=== PATIENT | male | born 1990 | race Two or more races ===

== ENCOUNTER 2020-04-02 09:37 | Outpatient (REF) | payer OTHER, SELFPAY | END 2020-04-02 09:38 | disposition home or self-care (01) | LOC: HO.LAB 09:37 | PROVIDERS: Visit Provider Internal Medicine | DX: Z20.828 Contact with and (suspected) exposure to other viral communicable diseases (principal) | CPT/HCPCS: C9803; U0003 ==

== ENCOUNTER 2020-12-01 10:55 | Outpatient (REF) | payer OTHER, SELFPAY ==
[2020-12-01 11:26] LABS: COVID-19 Test Negative (Negative)
== END 2020-12-01 10:56 | disposition home or self-care (01) ==
LOC: HO.LAB 10:55
PROVIDERS: PCP Nurse Practitioner Family; Visit Provider Internal Medicine
DX: Z20.822 Contact with and (suspected) exposure to COVID-19 (principal)
CPT/HCPCS: 36415; 87635; C9803

== ENCOUNTER → 2022-10-07 14:59 | Outpatient (BNVA) | payer OTHER, SELFPAY | PROVIDERS: PCP Physician Assistant Medical; Visit Provider Nurse Practitioner Family ==

== ENCOUNTER 2023-01-09 18:45 | Emergency (ER) | payer OTHER, SELFPAY ==
--- NOTE | 2023-01-09 18:52 | ECG_ITS ---
Test Reason : CHEST PAIN Blood Pressure : / mmHG Vent. Rate : 076 BPM Atrial Rate : 076 BPM P-R Int : 160 ms QRS Dur : 110 ms QT Int : 368 ms P-R-T Axes : 032 008 042 degrees QTc Int : 414 ms Normal sinus rhythm Normal ECG When compared with ECG of 20-NOV-2014 14:23, No significant change was found Referred By: Generic ED Physician Electronically Signed By:ANJALI CORONEL
[2023-01-09 19:30] VITALS: BP 154/101; PULSE 65; RESP 18; TEMP 36.6; O2SAT 97; BMI 45.5
[2023-01-09 19:53] LABS: MANUAL DIFF FLAG NO
[2023-01-09 19:57] LABS: Basophils Absolute Auto 0.1 X10*3/uL (0.0-0.2); Basophils Percent Auto 0.6 % (0-2); Eosinophils Absolute Auto 0.4 X10*3/uL (0.0-0.4); Eosinophils Percent Auto 3.8 % (0-4); Hematocrit 42.1 % (42.0-52.0); Hemoglobin 13.2 g/dl (14.0-18.0); Imm Gran Abs Auto 0.03 X10*3/uL (0.00-0.03); Imm Gran Pct Auto 0.3 % (0.0-0.4); Lymphocytes Absolute Auto 2.6 X10*3/uL (1.2-4.9); Lymphocytes Percent Auto 26.1 % (20-40); Mean Corpuscular HGB Conc 31.4 g/dl (31.0-36.0); Mean Corpuscular Hemoglobin 25.4 pg (27.0-33.0); Mean Platelet Volume 10.6 fL (9.4-12.4); Monocytes Absolute Auto 0.8 X10*3/uL (0.1-1.2); Monocytes Percent Auto 8.4 % (2-11); Neutrophils Percent Auto 60.8 % (45-73); Platelet Count 285 X10*3/uL (160-400); Red Cell Distribution Width 13.8 % (11.0-16.0); White Blood Count 9.8 X10*3/uL (4.8-10.8)
[2023-01-09 20:08] LABS: Anion Gap 13 (12-20); Blood Urea Nitrogen 10 mg/dL (9-16); Calcium 8.8 mg/dL (8.4-10.2); Carbon Dioxide 24 mmol/L (22-29); Chloride 108 mmol/L (96-108); Estimated Glomerular Filt Rate > 60; Glucose Random 102 mg/dL (60-115); Potassium 3.7 mmol/L (3.3-5.1); Sodium 141 mmol/L (135-145)
[2023-01-09 20:09] VITALS: BP 121/78; PULSE 64; RESP 16; TEMP 36.8; O2SAT 97
[2023-01-09 20:17] LABS: Troponin-I High Sensitivity < 2.7 ng/L (<3.5-35.0)
--- NOTE | 2023-01-09 20:56 | ED_ITS ---
HPI - Chest Pain General Chief Complaint: Chest Pain Stated Complaint: chest pain, numbness in hand Time Seen by Provider: 01/09/23 20:55 Source: patient Mode of arrival: ambulatory Limitations: no limitations History of Present Illness HPI narrative: 32-year-old man who presents emergency department for evaluation of chest pain. The patient states that he was sitting, stood up and then developed a pain in the center of his chest. He states that the pain is a constant, pressure-like pain. He had associated headache felt very tired and fatigued. He denied nausea, vomiting, dizziness, shortness of breath or diaphoresis. He took ibuprofen 400 mg orally at MN lie down and took a nap approximately 2-4 hours. When his tried to wake him up he was disoriented. He then continued to have chest pain and was brought to the emergency department for evaluation. Patient states this is 1st episode of this type of pain. Review of systems was negative for fever, chills, sore throat, cough, nausea, vomiting, diarrhea, shortness of breath or dyspnea on exertion Patient has not noticed any swelling or pain in his lower extremities, he has had no recent surgeries and has not gone on any long trips. Related Data Home Medications Medication Instructions Recorded Confirmed albuterol sulfate 90 mcg/actuation 2 puff inhalation Q4-6H PRN 10/07/22 aerosol inhaler wheezing amlodipine 10 mg tablet 10 mg PO QAM 10/07/22 fluticasone furoate 200 1 ea inhalation DAILY 10/07/22 mcg-vilanterol 25 mcg/dose inhalation powder (Breo Ellipta) montelukast 10 mg tablet 10 mg PO BEDTIME 10/07/22 olmesartan 40 1 tab PO DAILY 10/07/22 mg-hydrochlorothiazide 12.5 mg tablet omeprazole 20 mg capsule,delayed 20 mg PO QAM 10/07/22 release Previous Rx's Medication Instructions Recorded magnesium oxide 400 mg PO BEDTIME 30 days #30 caps 10/07/22 Allergies Allergy/AdvReac Type Severity Reaction Status Date / Time lisinopril [LISINOPRIL] Allergy Unknown ITCHY Unverified 10/07/22 15:11 THROAT Milk Containing Products Allergy Unknown Itching Verified 10/07/22 15:11 (Dairy) peanut Allergy Unknown Unknown Verified 10/07/22 15:11 Review of Systems 2 Review of Systems: Yes all other systems are reviewed and are negative [facility] Past Medical History [facility] Narrative: Past medical history: Hypertension, obesity, asthma. Surgical history: None. Social history: Patient denies tobacco use. He occasionally drinks alcohol, his last drink was 1 week prior. He smokes marijuana his last use of marijuana was 1 week prior. Family history. Patient's mother had a myocardial infarction of 60. Patient's father had a myocardial infarction at 60. Patient has a sister with hypertension, but no early NM Family History Family History (Updated 10/07/22 @ 15:14 by Jessi Moncada CMA) Father Hypertension Diabetes Mother Diabetes Hypertension Social History Social History (Updated 10/07/22 @ 15:15 by Jessi Moncada CMA) Alcohol intake: current Alcohol intake frequency: holidays/special occasions only Patient Tobacco Use Status: Never used Tobacco Smoked in Last 30 Days: No Use of substances other than those prescribed or required for medical reasons: Yes Substance Use Type: Marijuana Advance Directives: No Physical Exam 2 Vital Signs: Vital Signs: Last Vital Signs Temp 98.2 F 01/09/23 20:09 Pulse 64 01/09/23 20:09 Resp 16 01/09/23 20:09 BP 121/78 01/09/23 20:09 Pulse Ox 97 01/09/23 20:09 O2 Del Method Room Air 01/09/23 20:09 BMI result Body Mass Index 45.5 Vital signs were normal Exam: General: Awake, alert in no distress, elevated BMI 45.5 Head: Normocephalic, atraumatic EENT: PERRL, Lids normal, sclera normal, conjunctiva normal, nose normal , ears normal, throat without erythema or exudates Neck: Supple, no adenopathy, trachea midline and tender sternum and bilateral anterior chest over costochondral joints Lung: breath sounds symmetric, no wheezing, rales or rhonchi Chest: symmetric movement, nontender Heart: regular rate and rhythm, normal S1, S2 no murmurs or rubs Abdomen: soft, non-tender, nondistended, normal bowel sounds Back: no vertebral tenderness, no CVAT Extremities: no deformities, moves all extremities symmetrically Skin: no rashes, no lesion, normal color and warmth Neuro: Awake, alert, oriented, normal speech, cranial nerves intact, moves all extremities symmetrically Psych: Pleasant, cooperative Medications Administered Discontinued Medications Generic Name Dose Route Start Last Admin Trade Name Karen PRN Reason Stop Dose Admin Ketorolac Tromethamine 60 mg 01/09/23 21:15 01/09/23 22:34 Ketorolac Tromethamine 60 Mg/2 Ml Vial IM 01/09/23 21:16 60 mg ONCE ONE Administration Medical Decision Making Medical Decision Making [facility] Narrative: 32-year-old male with a history of hypertension asthma who presents emergency department for evaluation of constant chest pain since noon, pain started when he stood up, pain was a pressure-like pain which was associated with a headache and fatigue. Following evaluation was ordered: CBC, CMP, troponin, EKG 2240: Patient's laboratory evaluation was unremarkable including a high sensitive troponin I which was below detectable limits. Despite 6-8 hours of constant chest pain, there was no detectable troponin suggesting that the patient's pain is not related to myocardial injury/myocardial infarction. Patient was treated with Toradol 60 mg IM with some improvement of his pain. Patient was advised to take ibuprofen and Tylenol for pain. He was given a work note. He was given printed and verbal instructions and discharged home. Differential Diagnosis Differential Diagnoses: The differential diagnosis associated with the presentation includes Differential diagnosis includes was not limited to myocardial infarction, myocardial injury, musculoskeletal pain, costochondritis, pneumonia Admission/Observation Consideration of admission/observation: Escalation of care including admission/observation considered Lab Data [facility] Lab Attestation statement: I reviewed the patient's lab results. My interpretation of Patient's laboratory evaluation revealed a normal CBC, normal BMP, non elevated troponin. 01/09/23 19:49 01/09/23 19:49 Labs: Lab Results 01/09/23 Range/Units 19:49 WBC 9.8 (4.8-10.8) X10*3/uL RBC 5.20 (4.60-5.80) X10*6/uL Hgb 13.2 L (14.0-18.0) g/dl Hct 42.1 (42.0-52.0) % MCV 81.0 (80.0-98.0) fL MCH 25.4 L (27.0-33.0) pg MCHC 31.4 (31.0-36.0) g/dl RDW 13.8 (11.0-16.0) % Plt Count 285 (160-400) X10*3/uL MPV 10.6 (9.4-12.4) fL Immature Gran % (Auto) 0.3 (0.0-0.4) % Neut % (Auto) 60.8 (45-73) % Lymph % (Auto) 26.1 (20-40) % [place] % (Auto) 8.4 (2-11) % Eos % (Auto) 3.8 (0-4) % Baso % (Auto) 0.6 (0-2) % Lymph # (Auto) 2.6 (1.2-4.9) X10*3/uL [place] # (Auto) 0.8 (0.1-1.2) X10*3/uL Eos # (Auto) 0.4 (0.0-0.4) X10*3/uL Baso # (Auto) 0.1 (0.0-0.2) X10*3/uL Abs Immat Gran (auto) 0.03 (0.00-0.03) X10*3/uL Absolute Neuts (auto) 6.0 (2.0-8.3) x10*3/uL Absolute Nucleated RBC 0.000 (0.0-0.012) X10*3/uL Nucleated RBC % (auto) 0.0 (0.0-0.2) /100WBC Sodium 141 (135-145) mmol/L Potassium 3.7 (3.3-5.1) mmol/L Chloride 108 (96-108) mmol/L Carbon Dioxide 24 (22-29) mmol/L Anion Gap 13 (12-20) BUN 10 (9-16) mg/dL Creatinine 0.71 (0.5-1.4) mg/dL Estim Creat Clear Calc 214.0 Estimated GFR > 60 Random Glucose 102 (60-115) mg/dL Calcium 8.8 (8.4-10.2) mg/dL Troponin I High Sens < 2.7 (<3.5-35.0) ng/L Independent Interpretation I performed an independent interpretation of an: EKG Interpretation: My independent interpretation patient's 12 lead EKG done at 18:57 hours is as follows: Normal sinus rhythm rate of 76, normal MN interval, prolonged QTC interval 110 milliseconds, normal QTC interval, no ST segment elevation, no ST segment depression, no T-wave abnormalities, no PVCs and PACs. Compared to EKG dated 11/21/2019 15 there is no significant change. This is a normal EKG. Independent Historian Clinical information obtained from an independent historian. History obtained from or confirmed by: Other (Partner) Prescription Management I considered prescription management with: Pain Medication Chronic Conditions Patient?s care impacted by: Hypertension and Other (Asthma, obesity) Discharge Plan Discharge Clinical Impression: Chest pain Patient Disposition: Home, Self-Care Instructions: Costochondritis (ED) Additional Instructions: Your 12 EKG was normal and unchanged from your EKG 2015-this is reassuring. Your blood work was normal. Your complete blood count was normal-I have no anemia. Your blood chemistries, kidney function and your glucose (sugar ) were normal as well. Your high sensitivity troponin I (marker of heart damage) was undetectable which again is reassuring and suggests that your pain is not caused by heart pain. Take ibuprofen 200 mg pills, 2 pills every 6 hours as needed for pain or fever. Take Tylenol (acetaminophen) 500 mg pills, 2 pills every 6 hours as needed for pain or fever. Follow-up with your doctor in 2 days. Please return to the emergency department if your symptoms get worse or if you develop any symptoms that are concerning to you. Please see the work note Prescriptions: No Action olmesartan-hydrochlorothiazide 40-12.5 mg tablet 1 tab PO DAILY omeprazole 20 mg capsule,delayed release(DR/EC) 20 mg PO QAM albuterol sulfate 90 mcg/actuation HFA aerosol inhaler 2 puff inhalation Q4-6H PRN (Reason: wheezing) montelukast 10 mg tablet 10 mg PO BEDTIME amlodipine 10 mg tablet 10 mg PO QAM fluticasone furoate-vilanterol [Breo Ellipta] 200-25 mcg/dose blister with device 1 ea inhalation DAILY magnesium oxide 400 mg magnesium capsule 400 mg PO BEDTIME 30 Days Qty: 30 4RF Stand Alone Forms: Work/School Release
[2023-01-09] MEDS: Ketorolac Tromethamine 60 MG/2 ML VIAL IM (22:34)
== END 2023-01-09 22:53 | disposition home or self-care (01) ==
PROVIDERS: Emergency Provider Emergency Medicine Emergency Medical Services; PCP Physician Assistant Medical
DX: R07.89 Other chest pain (principal); R20.0 Anesthesia of skin; Z79.899 Other long term (current) drug therapy
CPT/HCPCS: 36415; 80048; 84484; 85025; 93005; 96372; 99284; 99285; J1885

== ENCOUNTER 2023-02-09 14:29 | Outpatient (AMB) | payer OTHER, SELFPAY ==
--- NOTE | 2023-02-09 14:38 | MHC.OFFVIS ---
Intake Vital Signs 02/09/23 14:39 Height 5 ft 10 in BP 132/78 Blood Pressure Location Lt brachial Position Sitting Respiration 17 Pulse 88 Pulse Source Pulse Oximeter Pulse Oximetry (%) 98 Oxygen Delivery Method Room Air Intake Visit Reasons: 4m f/u Snoring/Daytime Sleepiness - LVM Intake Note: Pt presents to the office for a 4 month follow up of snoring, daytime somnolence. He reports he hasn't seen much improvement in his symptoms, however, he hasn't been entirely compliant with the plan set at the last visit. He has reduced coffee consumption. 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 Pt reports that he had a sleep study when he was a child but it was inconclusive. Pt reports loud snoring, gasping arousals, non refreshing sleep with daytime sleepiness. His fiance witnessed apnea spells and gasping and keep rolling him to side to help breath well. Pt reports difficulty losing wt. The PSG sleep study was denied, and home sleep study ordered to assess sleep apnea. However, pt did not have home sleep study done yet. Sleep questionnaire: Have you ever been diagnosed with a sleep disorder? No. Have you ever had a sleep study in the past? Yes, but it was inconclusive. He could not sleep. Have you ever been treated for a sleep disorder? No. Do you take medications for a sleep disorder? Melatonin, sometimes. Do you snore? Yes, loudly. Do you wake up gasping at night? Yes. Do you have episodes of apneas? Yes. If yes, are they witnessed? Yes, by his finance. Do you have episodes of nocturnal chest pain or dyspnea? Yes. Do you have difficulty initiating sleep? Yes, sometimes. Do you have difficulty maintaining sleep? Yes. Do you wake up tired? Yes. Do you have headaches upon awakening? Yes, but not consistent. Do you wake up with dry mouth or throat? Yes. Do you have GERD? Yes. Do you have nocturia? Yes. Do you have nocturnal leg cramps? Yes. Do you have symptoms of restless legs? No. Do you act out your dreams? No. Sleep hygiene questionnaire: What is your usual sleep routine? Usual bedtime is at 9 pm; Usual wake up time is at 5-6 am. Do you take naps? No. Is your sleep environment cool, dark, and quiet? Yes. Do you exercise? No. Do you take caffeine or other stimulants? Lots of coffee during the day. Do you use electronics in bed? No. What is your work schedule? 6 am to 4 pm. Hypersomnolence questionnaire: Do you have daytime tiredness or fatigue? Yes. Do you easily fall asleep when inactive? Yes. Have you ever had episodes of sudden weakness? No. Have you ever had episodes of sudden weakness associated with strong emotions? No. PFSH Family History Father Hypertension Diabetes Mother Diabetes Hypertension Alcohol intake: current Alcohol intake frequency: holidays/special occasions only Patient Tobacco Use Status: Never used Tobacco Substance Use Type: Marijuana Review of Systems Const All systems reviewed & are unremarkable except as noted in HPI and below ENT Reports Normal hearing present Neuro Reports Normal hearing present and Reports Abnormal speech present Physical Exam Vital Signs: Last Vital Signs Pulse 88 02/09/23 14:39 Resp 17 02/09/23 14:39 BP 132/78 02/09/23 14:39 Pulse Ox 98 02/09/23 14:39 Oxygen Delivery Method Room Air 02/09/23 14:39 Const General: cooperative Nutritional Appearance: obese Orientation/consciousness: patient oriented x3 Neck Neck: Yes full ROM and Yes supple Resp Effort & Inspection: normal respiratory effort and able to speak in complete sentences Neuro General: patient oriented x3 and gait normal Cranial nerves: Yes Bilaterally intact EOM present, Yes Normal facial strength present, Yes Midline tongue present, Yes Symmetric palate elevation present, Yes Normal hearing present, Yes Ability to bilaterally rotate head present and Yes Ability to bilaterally elevate shoulders present Cognition (Neuro): normal cognition Speech: Abnormal speech present Gait exam (Neuro): Normal gait present Motor exam (neuro): 5/5 motor strength present throughout, Pronator motor function not present and no tremor noted Psych Appearance: grossly normal Mental Status: mental status grossly normal Speech and movement: Normal speech and movement present Affect: normal affect Attitude: cooperative Assessment & Plan Assessment & Plan (1) Witnessed apneic spells: Code(s): R06.81 - Apnea, not elsewhere classified (2) Obesity, Class III, BMI 40-49.9 (morbid obesity): Code(s): E66.01 - Morbid (severe) obesity due to excess calories (3) Excessive daytime sleepiness: Code(s): G47.19 - Other hypersomnia (4) Loud snoring: Code(s): R06.83 - Snoring Plan Pt is advised to undergo home sleep study to assess for sleep apnea. Will f/u with pt after study to discuss results and appropriate treatment options. Wt reduction advised. Pt to call with any worsening concerns or questions. Coding Level of Care Code Est Pt Level 2 (16263) Diagnoses Witnessed apneic spells R06.81 Obesity, Class III, BMI 40-49.9 (morbid obesity) E66.01 Excessive daytime sleepiness G47.19 Loud snoring R06.83
[2023-02-09 14:39] VITALS: BP 132/78; PULSE 88; RESP 17; O2SAT 98
== END 2023-02-09 14:53 | disposition home or self-care (01) ==
PROVIDERS: PCP Physician Assistant Medical; Visit Provider Nurse Practitioner Family
DX: R06.81 Apnea, not elsewhere classified (principal); E66.01 Morbid (severe) obesity due to excess calories; G47.19 Other hypersomnia; R06.83 Snoring
CPT/HCPCS: 99212

== ENCOUNTER → 2023-02-09 14:29 | Outpatient (BNVA) | payer OTHER, SELFPAY | PROVIDERS: PCP Physician Assistant Medical; Visit Provider Nurse Practitioner Family | DX: R06.83 Snoring (principal); G47.19 Other hypersomnia; E66.01 Morbid (severe) obesity due to excess calories; I10 Essential (primary) hypertension; R06.81 Apnea, not elsewhere classified ==

== ENCOUNTER → 2023-03-22 09:57 | Outpatient (REF) | payer OTHER, SELFPAY | LOC: HO.SL 09:57 | PROVIDERS: PCP Physician Assistant Medical; Visit Provider Nurse Practitioner Family | DX: G47.33 Obstructive sleep apnea (adult) (pediatric) (principal); R06.83 Snoring; G47.19 Other hypersomnia; E66.01 Morbid (severe) obesity due to excess calories | CPT/HCPCS: 95806 ==

== ENCOUNTER → 2023-03-22 10:49 | Outpatient (BNV) | payer OTHER, SELFPAY | PROVIDERS: PCP Physician Assistant Medical; Visit Provider Psychiatry & Neurology Neurology | DX: G47.33 Obstructive sleep apnea (adult) (pediatric) (principal) | CPT/HCPCS: 95806 ==

== ENCOUNTER 2023-06-15 14:26 | Outpatient (AMB) | payer OTHER, SELFPAY ==
--- NOTE | 2023-06-15 14:35 | MHC.OFFVIS ---
Intake Vital Signs 06/15/23 14:42 Height 5 ft 10 in Weight 318 lb 8 oz BMI 45.7 BP 124/70 Blood Pressure Location Lt brachial Position Sitting Pulse 97 Pulse Source Pulse Oximeter Pulse Oximetry (%) 96 Oxygen Delivery Method Room Air Intake Visit Reasons: 4M f/u - CONF w/address Intake Note: Patient presets for 4 month f/u. Allergies lisinopril [LISINOPRIL] Allergy (Unknown, Verified 06/15/23 14:41) ITCHY THROAT Milk Containing Products (Dairy) Allergy (Unknown, Verified 06/15/23 14:41) Itching peanut Allergy (Unknown, Verified 06/15/23 14:41) Unknown HPI HPI Comments History of Present Illness Details 32 y/o male patient presents for follow up of sleep study. The home sleep study result was significant for a moderate degree of sleep apnea. The AHI was 21/hr and oxygen jak was 72%. APAP at 5-15 cmH2O ordered. However, pt did not pay for deposit and the order is pending now. Pt states that he will call to [facility] and get the CPAP. Pt takes magnesium 400 mg qHS and it help him staying sleep and legs cramping also has resolved. PFSH Family History Father Hypertension Diabetes Mother Diabetes Hypertension Social History Alcohol intake: current Alcohol intake frequency: holidays/special occasions only Patient Tobacco Use Status: Never used Tobacco Substance Use Type: Marijuana Review of Systems Const All systems reviewed & are unremarkable except as noted in HPI and below ENT Reports Normal hearing present Neuro Reports Normal hearing present and Reports Abnormal speech present Physical Exam Vital Signs: Last Vital Signs Pulse 97 06/15/23 14:42 BP 124/70 06/15/23 14:42 Pulse Ox 96 06/15/23 14:42 Oxygen Delivery Method Room Air 06/15/23 14:42 BMI result Body Mass Index 45.7 Const General: cooperative Nutritional Appearance: obese Orientation/consciousness: patient oriented x3 Neck Neck: Yes full ROM and Yes supple Resp Effort & Inspection: normal respiratory effort and able to speak in complete sentences Neuro General: patient oriented x3 and gait normal Cranial nerves: Yes Bilaterally intact EOM present, Yes Normal facial strength present, Yes Midline tongue present, Yes Symmetric palate elevation present, Yes Normal hearing present, Yes Ability to bilaterally rotate head present and Yes Ability to bilaterally elevate shoulders present Cognition (Neuro): normal cognition Speech: Abnormal speech present Gait exam (Neuro): Normal gait present Motor exam (neuro): 5/5 motor strength present throughout, Pronator motor function not present and no tremor noted Psych Appearance: grossly normal Mental Status: mental status grossly normal Speech and movement: Normal speech and movement present Affect: normal affect Attitude: cooperative Assessment & Plan Assessment & Plan (1) JOSH (obstructive sleep apnea): Comment: Moderate degree of sleep apnea. The AHI was 21/hr and oxygen jak was 72% Code(s): G47.33 - Obstructive sleep apnea (adult) (pediatric) Plan [facility] information givent to patient to call and pay deposit for CPAP. Stressed CPAP compliance, use CPAP nighlty and more than 4 hrs. Wt reduction advised. Continue to take magnesium 400 mg qHS. Coding Level of Care Code Est Pt Level 3 (23138) Diagnoses JOSH (obstructive sleep apnea) G47.33
[2023-06-15 14:42] VITALS: BP 124/70; PULSE 97; O2SAT 96; BMI 45.7
== END 2023-06-15 14:57 | disposition home or self-care (01) ==
PROVIDERS: PCP Physician Assistant Medical; Visit Provider Nurse Practitioner Family
DX: G47.33 Obstructive sleep apnea (adult) (pediatric) (principal)
CPT/HCPCS: 99213

== ENCOUNTER → 2023-06-15 14:26 | Outpatient (BNVA) | payer OTHER, SELFPAY | PROVIDERS: PCP Physician Assistant Medical; Visit Provider Nurse Practitioner Family ==

== ENCOUNTER 2023-10-11 14:03 | Outpatient (AMB) | payer OTHER, SELFPAY ==
[2023-10-11 14:09] VITALS: BP 126/78; PULSE 88; O2SAT 97; BMI 45.6
--- NOTE | 2023-10-11 14:09 | A.OFFVIS_ITS ---
Vital Signs 10/11/23 14:09 Height 5 ft 10 in Weight 318 lb BMI 45.6 BP 126/78 Blood Pressure Location Rt brachial Position Sitting Pulse 88 Pulse Source Pulse Oximeter Pulse Oximetry (%) 97 Intake Visit Reasons: 4 mo f/u-LVM Intake Note: Patient presents for 4 month follow up. patient needs needs equipments for machine Allergies lisinopril [LISINOPRIL] Allergy (Unknown, Verified 10/11/23 14:12) ITCHY THROAT Milk Containing Products (Dairy) Allergy (Unknown, Verified 10/11/23 14:12) Itching peanut Allergy (Unknown, Verified 10/11/23 14:12) Unknown HPI Comments Details: 32-yr-old male presents for f/u visit. Pt denies any significant interval medical changes. Pt has started to use his APAP machine. Feels he overall is sleeping well with use, wakes up more refreshed. Not having as much excessive daytime sleepiness- no longer falling asleep at work. No longer waking up w/ morning headaches. Some nights he may fall asleep without putting the APAP on. He is using a full face mask- he does feel that the mask is starting to stretch out. Compliance Report Usage 09/11/2023 - 10/10/2023 Usage days 26/30 days (87%) Usage days >= 4 hours 23 days (77%) Usage days < 4 hours 3 days (10%) Average usage (days used) 5 hours 34 minutes AirS[employer] 10 AutoSet Serial number [id number] Mode AutoSet Min Pressure 5 cmH2O Max Pressure 15 cmH2O Maximum pressure: 14.6 cmH2O EPR Fulltime EPR level 2 Response Standard Therapy Pressure Residual AHI: 1.3/hr PFSH Family History Father Hypertension Diabetes Mother Diabetes Hypertension Social History Alcohol intake: current Alcohol intake frequency: holidays/special occasions only Patient Tobacco Use Status: Never used Tobacco Substance Use Type: Marijuana Physical Exam Vital Signs: Last Vital Signs Pulse 88 10/11/23 14:09 BP 126/78 10/11/23 14:09 Pulse Ox 97 10/11/23 14:09 BMI result Body Mass Index 45.6 Const General: cooperative and no acute distress Orientation/consciousness: patient oriented x3 Resp Effort & Inspection: normal respiratory effort and able to speak in complete sentences Neuro General: patient oriented x3 Cranial nerves: Yes CN's II-XII intact bilaterally Cognition (Neuro): normal cognition Psych Appearance: grossly normal Mental Status: mental status grossly normal Speech and movement: Normal speech and movement present Affect: normal affect Attitude: cooperative Assessment & Plan Assessment & Plan (1) JOSH (obstructive sleep apnea): Comment: Moderate degree of sleep apnea. The AHI was 21/hr and oxygen jak was 72% Code(s): G47.33 - Obstructive sleep apnea (adult) (pediatric) Category: Medical Plan Continue APAP, as pt has had very good clinical effect and reduction in AHI from use. However, as maximum APAP pressure is 14.6 cmH2O, APAP settings adjusted via [employer] portal, from APAP [id number] w/ EPR 2 to APAP [id number] w/ EPR 2. Advised to call respiratory company for new supplies. Continue to clean PAP device and supplies routinely. Monitor am headaches. Coding Level of Care Code Est Pt Level 3 (69043) Diagnoses JOSH (obstructive sleep apnea) G47.33
== END 2023-10-11 14:30 | disposition home or self-care (01) ==
PROVIDERS: PCP Physician Assistant Medical; Visit Provider Nurse Practitioner Family
DX: G47.33 Obstructive sleep apnea (adult) (pediatric) (principal)
CPT/HCPCS: 99213

== ENCOUNTER → 2023-10-11 14:03 | Outpatient (BNVA) | payer OTHER, SELFPAY | PROVIDERS: PCP Physician Assistant Medical; Visit Provider Nurse Practitioner Family ==